=== PATIENT | female | born 1985 | race Caucasian/White ===

== ENCOUNTER 2017-07-19 16:41 | Emergency (ER) | payer OTHER ==
[~2017-07-19] VITALS: Ht 175.3 cm; Wt 68.0 kg
[2017-07-19 16:51] VITALS: BP 131/74
[2017-07-19] MEDS ORDERED: NAPROXEN 500 MG TABLET PO STA (17:05)
[2017-07-19] MEDS ORDERED: CYCLOBENZAPRINE 10 MG TABLET. PO ONE (17:15)
[2017-07-19] MEDS ORDERED: HYDROcodone/APAP 5/325MG 1 TAB TABLET PO ONE (17:15)
[2017-07-19] MEDS ORDERED: METH4TAB2 PO (17:26)
[2017-07-19] MEDS ORDERED: DICL50TA4 PO (17:26)
[2017-07-19] MEDS ORDERED: CYCL10TA2 PO (17:26)
--- NOTE | 2017-07-19 17:26 | PHYS DOC ---
Past Medical History Past Medical History: Kidney Stone Past Surgical History: Other Additional Past Surgical Histo: Lithotripsy Additional Information: 1 PPD Alcohol Use: Occasionally Drug Use: None Adult General Chief Complaint Chief Complaint: SHOULDER INJURY HPI HPI Patient is a 32 year old female with no significant medical history who presents today with complaints of left shoulder pain as well as pain radiating from the left lateral neck into the left fingers that began today. Patient denies any known injury. Patient states she has some numbness and tingling running through the ulnar aspect of the forearm to the fingers. Patient denies any known injury. Review of Systems Review of Systems Constitutional: Denies fever or chills [] Musculoskeletal: Neck pain radiating to the left upper extremity with numbness and tingling, left shoulder pain Integument: Denies rash or skin lesions [] Neurologic: Denies headache, focal weakness or sensory changes [] Current Medications Current Medications Current Medications Medications (Trade) Dose Ordered Sig/Hortencia Start Time Stop Time Status Last Admin Dose Admin Acetaminophen/ Hydrocodone Bitart (Lortab 5/325) 1 tab 1X ONCE 07/19/17 17:15 07/19/17 17:16 DC 07/19/17 17:12 1 TAB Cyclobenzaprine HCl (Flexeril) 10 mg 1X ONCE 07/19/17 17:15 07/19/17 17:16 DC 07/19/17 17:12 10 MG Naproxen (Naprosyn) 500 mg 1X STAT 07/19/17 17:05 07/19/17 17:07 DC 07/19/17 17:12 500 MG Allergies Allergies Allergies Coded Allergies Type Severity Reaction Last Updated Verified No Known Drug Allergies 01/05/15 No Physical Exam Physical Exam Constitutional: Well developed, well nourished, no acute distress, non-toxic appearance. [] Skin: Warm, dry, no erythema, no rash. [] Back: No tenderness, no CVA tenderness. [] Extremities: Left shoulder with no obvious deformity. Full range of motion to the left shoulder including abduction and adduction. Adequate plantar flexion and dorsiflexion of the left forearm. +2 left radial pulse. Cap refill less than 2 seconds the left fingers. Adequate radial medial and ulnar sensation to the left hand. Neurologic: Alert and oriented X 3, normal motor function, normal sensory function, no focal deficits noted. [] Psychologic: Affect normal, judgement normal, mood normal. [] Current Patient Data Vital Signs Vital Signs Date Time Temp Pulse Resp B/P (MAP) Pulse Ox O2 Delivery O2 Flow Rate FiO2 07/19/17 16:51 98.3 70 20 131/74 (93) 95 Room Air 98.3 EKG EKG [] Radiology/Procedures Radiology/Procedures [] Course & Med Decision Making Course & Med Decision Making Pertinent Labs and Imaging studies reviewed. (See chart for details) Patient is in the ED with pain consistent of cervical radiculopathy. No known injury. Discharged with diclofenac and cyclobenzaprine. He was also given a prescription for Medrol Dosepak. Ice recommended. Follow-up with orthopedic doctor in one week. Dragon Disclaimer Dragon Disclaimer This electronic medical record was generated, in whole or in part, using a voice recognition dictation system. Departure Departure Impression: Primary Impression: Cervical radiculopathy Additional Impression: Shoulder pain, acute Disposition: 01 HOME, SELF-CARE Condition: STABLE Referrals: NO PCP (PCP) Follow-up with the provided orthopedic doctor in one week CODI KHANNA MD follow up in one week Patient Instructions: Cervical Radiculopathy, Shoulder Pain, [id number] Additional Instructions: You were seen with left shoulder pain as well as pain radiating from the neck into the left upper extremity. This is a sign of what we call cervical radiculopathy which is a pinched nerve. You can ice and elevate the affected extremity. Take the prescribed medicines as ordered. Do not drive on the cyclobenzaprine. Scripts Methylprednisolone (MEDROL) 4 Mg Tab.ds.pk 1 PKG PO UD, #1 PKG Prov: DELLA RAGSDALE APRN 07/19/17 Diclofenac Sodium (DICLOFENAC SODIUM) 50 Mg Tablet.dr 1 TAB PO BID, #30 TAB 0 Refills Prov: DELLA RAGSDALE APRN 07/19/17 Cyclobenzaprine Hcl (CYCLOBENZAPRINE HCL) 10 Mg Tablet 1 TAB PO TID, #30 TAB Prov: DELLA RAGSDALE APRN 07/19/17 Problem Qualifiers Additional Impression: Shoulder pain, acute Laterality: left Qualified Codes: M25.512 - Pain in left shoulder DELLA RAGSDALE APRN Jul 19, 2017 17:26
== END 2017-07-19 17:30 | disposition home or self-care (01) ==
LOC: ER 16:41
DX: M25.512 Pain in left shoulder (principal); M54.12 Radiculopathy, cervical region; F17.200 Nicotine dependence, unspecified, uncomplicated
CPT/HCPCS: 99284